=== PATIENT | female | born 1990 | race Caucasian/White ===

== ENCOUNTER 2020-02-11 14:49 | Emergency (ER) | payer OTHER ==
[2020-02-11 15:26] LABS: HCG UR QUAL NEGATIVE
--- NOTE | 2020-02-11 18:09 | ED Physician Documentation ---
History of Present Illness - Stated complaint Stated Complaint: CHEST DISCOMFORT,FAST HR - Chief complaint Chief Complaint: Cardiac - History obtained from History obtained from: Patient, Family - History of Present Illness Timing: Today - Additonal information Additional information: 29-year-old female who has recently stopped her control pill and has begun to workout in the gym again has noted this morning when she awoke she had a rapid heart rate. She noted her heart rate to be 117. She usually runs in the low 90s. She has become concerned today as she has had this rapid heart rate intermittently and she feels like she is got some shortness of breath. She feels like she has to stop and take a deep breath periodically. Review of Systems Constitutional: denies: Fever Eyes: denies: Decreased vision Ears: denies: Ear pain Nose: denies: Congestion Throat: denies: Sore throat Cardiac: reports: Palpitations. denies: Chest pain / pressure, Pedal edema, Calf pain Respiratory: reports: Dyspnea. denies: Cough GI: denies: Abdominal Pain, Abdominal Swelling, Nausea, Vomiting : denies: Dysuria, Frequency Musculoskeletal: denies: Neck pain, Back pain, Extremity pain, Extremity swelling, Joint swelling Neurologic: denies: Generalized weakness, Focal weakness, Numbness PD PAST MEDICAL HISTORY - Past Medical History Past Medical History: No - Past Surgical History Past Surgical History: No - Allergies Allergies/Adverse Reactions: Allergies Allergy/AdvReac Type Severity Reaction Status Date / Time No Known Drug Allergies Allergy Verified 02/11/20 14:56 - Social History Does the pt smoke?: No Smoking Status: Never smoker Does the pt drink ETOH?: Yes Does the pt have substance abuse?: No - Immunizations Immunizations are current?: Yes PD ED PE NORMAL - Vitals Vital signs reviewed: Yes (hypertensive ) - General General: No acute distress, Well developed/nourished - HEENT HEENT: Atraumatic, PERRL, EOMI - Neck Neck: Supple, no meningeal sign, No bony TTP - Cardiac Cardiac: RRR, No murmur - Respiratory Respiratory: No respiratory distress, Clear bilaterally - Abdomen Abdomen: Soft, Non tender - Back Back: No CVA TTP, No spinal TTP - Derm Derm: Normal color, Warm and dry, No rash - Extremities Extremities: No deformity, Normal ROM s pain, No edema, No calf tenderness / cord - Neuro Neuro: Alert and oriented X 3, 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, No motor deficit, No sensory deficit, Normal speech Eye Opening: Spontaneous Motor: Obeys Commands Verbal: Oriented GCS Score: 15 - Psych Psych: Normal mood, Normal affect Results - Vitals Vitals: Vital Signs - 24 hr 02/11/20 02/11/20 14:52 17:19 Temperature 36.6 C 36.8 C Heart Rate 93 91 Respiratory 18 14 Rate Blood Pressure 141/93 H 117/90 H O2 Saturation 99 100 Oxygen O2 Source Room air - EKG (time done) 1518 Rate: Rate (enter#) (91) Rhythm: NSR Ischemia: Non specific changes (borderline T abnormalities) Compare to prior EKG: Old EKG unavailable Computer interpretation: Agree with computer - Labs Labs: Laboratory Tests 02/11/20 02/11/20 02/11/20 15:02 18:13 18:13 WBC 8.0 RBC 4.68 Hgb 14.5 Hct 42.9 MCV 91.7 MCH 31.0 MCHC 33.8 RDW 11.6 L Plt Count 223 MPV 11.0 H Neut # (Auto) 4.8 Lymph # (Auto) 2.5 [place] # (Auto) 0.6 Eos # (Auto) 0.0 Baso # (Auto) 0.1 Absolute Nucleated RBC 0.00 Nucleated RBC % 0.0 D-Dimer Sodium 137 Potassium 3.9 Chloride 103 Carbon Dioxide 26 Anion Gap 8.0 BUN 8 Creatinine 0.7 Estimated GFR (MDRD) 98 Glucose 90 Calcium 8.9 Total Bilirubin 1.4 H AST 57 H ALT 91 H Alkaline Phosphatase 48 Total Protein 7.0 Albumin 4.6 Globulin 2.4 Albumin/Globulin Ratio 1.9 Lipase 28 Ur Specific [place] 1.015 Urine HCG, Qual NEGATIVE 02/11/20 18:13 WBC RBC Hgb Hct MCV MCH MCHC RDW Plt Count MPV Neut # (Auto) Lymph # (Auto) [place] # (Auto) Eos # (Auto) Baso # (Auto) Absolute Nucleated RBC Nucleated RBC % D-Dimer < 200.0 L Sodium Potassium Chloride Carbon Dioxide Anion Gap BUN Creatinine Estimated GFR (MDRD) Glucose Calcium Total Bilirubin AST ALT Alkaline Phosphatase Total Protein Albumin Globulin Albumin/Globulin Ratio Lipase Ur Specific [place] Urine HCG, Qual Procedures - IVC sono (time) 1803 Bedside IVC sono: IVC measures (cm) (1.12), IVC collapsed c insp (cm) (complete), Dehydration (est 1-2 liter deficit) PD MEDICAL DECISION MAKING - ED course Complexity details: considered differential, d/w patient, d/w family ED course: 29-year-old female who is concerned about a rapid heart rate this morning is found to be dehydrated on interrogation the inferior vena cava. She has been taking some supplements with her workouts and she has increased her workouts to 6 days/week. She has some mild elevation in her AST and ALT and I have asked her to have this rechecked after discontinuing some of the supplements. Departure - Departure Disposition: 01 Home, Self Care Clinical Impression: Dehydration, Elevated liver function tests Condition: Stable Instructions: ED Dehydration Follow-Up: [facility] [Provider Group] Comments: Today we found you were dehydrated and the recommendation is to drink an additional quart of fluid this evening.This may be related to your use of some In addition there was some mild elevation in some of your liver functions and supplements. My recommendation is to discontinue the use of the supplements and follow-up with a primary care doctor for retesting of these liver functions in about 1 month.
[2020-02-11 18:23] LABS: BASOPHILS # (AUTO) 0.1 10^3/uL (0.0-0.1); BASOPHILS % (AUTO) 0.6 %; EOSINOPHILS % (AUTO) 0.4 %; HGB - HEMOGLOBIN 14.5 g/dL (12.0-16.0); LYMPHOCYTES # (AUTO) 2.5 10^3/uL (1.5-3.5); LYMPHOCYTES % (AUTO) 31.1 %; MEAN CORPUSCULAR HGB CONC 33.8 g/dL (32.0-36.0); MEAN CORPUSCULAR VOLUME 91.7 fL (81.0-99.0); MONOCYTES # (AUTO) 0.6 10^3/uL (0.0-1.0); NEUTROPHILS # (AUTO) 4.8 10^3/uL (1.5-6.6); NEUTROPHILS % (AUTO) 60.5 %; PLT - PLATELET COUNT 223 10^3/uL (130-450); RED BLOOD COUNT 4.68 10^6/uL (4.20-5.40); RED CELL DISTRIBUTION WIDTH 11.6 % (12.0-15.0)
[2020-02-11 18:37] LABS: ALBUMIN 4.6 g/dL (3.2-5.5); ALBUMIN/GLOBULIN RATIO 1.9 (1.0-2.2); BILIRUBIN,TOTAL 1.4 mg/dL (0.2-1.0); CALCIUM 8.9 mg/dL (8.5-10.3); CREATININE 0.7 mg/dL (0.4-1.0)
[2020-02-11 19:01] VITALS: BP 115/88
== END 2020-02-11 19:02 | disposition home or self-care (01) ==
LOC: ED 14:49
DX: E86.0 Dehydration (principal); R94.5 Abnormal results of liver function studies
CPT/HCPCS: 36415; 80053; 81001; 81003; 81025; 83690; 84484; 85025; 85379; 87086; 93005; 99283; 99284

== ENCOUNTER 2021-02-23 21:19 | Outpatient (CLI) | payer OTHER ==
--- NOTE | 2021-02-24 16:32 | Ultrasound Report ---
PROCEDURE: OB First Trimester w/TV INDICATIONS: VAGINAL BLEEDING AFTER POSITIVE TEST OUTSIDE/PRIOR DATING DATA: Last menstrual period (LMP): 01/06/2021. LMP-based estimated date of delivery (DAVID): 10/13/2021. First dating scan (date and location): 02/24/2021 Estimated date of delivery (DAVID) from first dating scan: N/A TECHNIQUE: Real-time scanning was performed of the fetus and maternal pelvic organs, with image documentation. Endovaginal scanning was also performed for better visualization COMPARISON: None FINDINGS: No intrauterine or ectopic is identified. Uterus is normal in size. Exact measurements is not obtained. There is a intramural fibroid on the le ft measuring 1.6 x 1.9 x 1.6 cm. The endometrial stripe is not measured. It is not thickened. Maternal organs: Ovaries are normal in size, no measurements obtained. There are multiple small bila teral ovarian follicles. There is duplex flow in both ovaries. There is thin, physiologic fluid in th e pelvis. IMPRESSION: 1. No evidence of intrauterine or ectopic . Beta hCG level provided. 2. Consider serial follow-up beta hCGs. If the beta-hCG level currently is below the level in which v isualization of a is expected, consider repeat ultrasound in 1-2 weeks. Reviewed by: Aftab Rasmussen MD on 02/24/2021 4:31 PM PDT Approved by: Aftab Rasmussen MD on 02/24/2021 4:31 PM PDT Station ID: [id number]
== END 2021-02-23 21:20 | disposition home or self-care (01) ==
LOC: DI 21:19
PROVIDERS: ATTEND Family Medicine
DX: Z32.01 Encounter for pregnancy test, result positive (principal); N93.9 Abnormal uterine and vaginal bleeding, unspecified

== ENCOUNTER 2023-12-13 19:12 | Outpatient (CLI) | payer OTHER | END 2023-12-13 23:59 | disposition short-term general hospital (02) | LOC: EMS 19:12 | PROVIDERS: ATTEND Family Medicine | DX: O46.93 Antepartum hemorrhage, unspecified, third trimester (principal); Z3A.33 33 weeks gestation of pregnancy | CPT/HCPCS: A0425; A0429 ==